=== PATIENT | male | born 1955 | race Caucasian/White ===

== ENCOUNTER → 2017-03-01 | Outpatient (REF) | payer OTHER ==
[~2017-03-01] MED LIST: /PRAV20TA; /WARF25TA; ACET65TA; ALTA5CAP; AMBI5TAB; ASPI81TA83; DARV100T; FISH1000; NAPR500T; NIAC50TA; PERC5TAB8; PERC7.5T8; [UNRECOGNIZED DRUG - OTHER]
[2017-03-01 17:13] LABS: MEAN CORPUSCULAR HEMOGLOBIN 31.4 pg (27.0-33.0); MEAN CORPUSCULAR HGB CONC 32.5 g/dl (32.0-36.5); MEAN CORPUSCULAR VOLUME 96.7 fl (80.0-96.0); RED CELL DISTRIBUTION WIDTH 12.8 % (11.5-14.5)
[2017-03-01 17:50] LABS: ALBUMIN 4.3 GM/DL (3.2-5.2); ALBUMIN/GLOBULIN RATIO 1.39 (1.00-1.93); ALKALINE PHOSPHATASE 46 U/L (45-117); ALT/SGPT 23 U/L (12-78); ANION GAP 6 MEQ/L (8-16); AST/SGOT 15 U/L (15-37); BILIRUBIN,TOTAL 0.4 MG/DL (0.2-1.0); BLOOD UREA NITROGEN 26 MG/DL (7-18); CALCIUM LEVEL 9.1 MG/DL (8.8-10.2); CARBON DIOXIDE LEVEL 29 MEQ/L (21-32); CHLORIDE LEVEL 106 MEQ/L (98-107); CHOLESTEROL LEVEL 201 MG/DL (<200); CREATININE FOR GFR 1.15 MG/DL (0.70-1.30); GLOMERULAR FILTRATION RATE > 60.0 (>49); GLUCOSE, FASTING 100 MG/DL (80-110); POTASSIUM SERUM 4.7 MEQ/L (3.5-5.1); SODIUM LEVEL 141 MEQ/L (136-145); TOTAL PROTEIN 7.4 GM/DL (6.4-8.2); TRIGLYCERIDES LEVEL 178 MG/DL (<150)
== END ==
LOC: M SFHCCLAY 11:27
PROVIDERS: ATTEND Nurse Practitioner Family
DX: I10 Essential (primary) hypertension (principal); E78.4 Other hyperlipidemia; E55.9 Vitamin D deficiency, unspecified

== ENCOUNTER → 2017-05-23 | Outpatient (REF) | payer OTHER ==
[2017-05-23 18:20] LABS: BLOOD UREA NITROGEN 28 MG/DL (7-18); CHOLESTEROL LEVEL 178 MG/DL (<200); CREATININE FOR GFR 1.09 MG/DL (0.70-1.30); GLOMERULAR FILTRATION RATE > 60.0 (>49); TRIGLYCERIDES LEVEL 165 MG/DL (<150)
== END ==
LOC: M SFHCCLAY 10:35
PROVIDERS: ATTEND Nurse Practitioner Family
DX: I10 Essential (primary) hypertension (principal); E78.4 Other hyperlipidemia; E55.9 Vitamin D deficiency, unspecified

== ENCOUNTER → 2017-08-31 | Outpatient (REF) | payer OTHER ==
[2017-08-31 17:39] LABS: ANION GAP 6 MEQ/L (8-16); BLOOD UREA NITROGEN 25 MG/DL (7-18); CALCIUM LEVEL 9.2 MG/DL (8.8-10.2); CARBON DIOXIDE LEVEL 27 MEQ/L (21-32); CHLORIDE LEVEL 107 MEQ/L (98-107); CHOLESTEROL LEVEL 158 MG/DL (<200); CREATININE FOR GFR 1.13 MG/DL (0.70-1.30); GLOMERULAR FILTRATION RATE > 60.0 (>49); GLUCOSE, FASTING 100 MG/DL (80-110); POTASSIUM SERUM 4.7 MEQ/L (3.5-5.1); SODIUM LEVEL 140 MEQ/L (136-145); TRIGLYCERIDES LEVEL 163 MG/DL (<150)
== END ==
LOC: M SFHCCLAY 11:37
PROVIDERS: ATTEND Nurse Practitioner Family
DX: E78.1 Pure hyperglyceridemia (principal); I10 Essential (primary) hypertension; E55.9 Vitamin D deficiency, unspecified

== ENCOUNTER → 2018-03-10 | Outpatient (REF) | payer OTHER ==
[2018-03-10 16:33] LABS: HEMATOCRIT 41.3 % (42.0-52.0); HEMOGLOBIN 13.9 g/dl (13.5-17.5); MEAN CORPUSCULAR HEMOGLOBIN 32.3 pg (27.0-33.0); MEAN CORPUSCULAR HGB CONC 33.7 g/dl (32.0-36.5); PLATELET COUNT, AUTOMATED 183 10^3/uL (150-450); RED CELL DISTRIBUTION WIDTH 11.9 % (11.5-14.5); WHITE BLOOD COUNT 5.6 10^3/uL (4.0-10.0)
[2018-03-10 16:47] LABS: ALBUMIN 4.1 GM/DL (3.2-5.2); ALBUMIN/GLOBULIN RATIO 1.17 (1.00-1.93); ALKALINE PHOSPHATASE 40 U/L (45-117); ALT/SGPT 23 U/L (12-78); ANION GAP 6 MEQ/L (8-16); AST/SGOT 20 U/L (7-37); BILIRUBIN,TOTAL 0.4 MG/DL (0.2-1.0); BLOOD UREA NITROGEN 31 MG/DL (7-18); CALCIUM LEVEL 8.5 MG/DL (8.8-10.2); CARBON DIOXIDE LEVEL 27 MEQ/L (21-32); CHLORIDE LEVEL 109 MEQ/L (98-107); CHOLESTEROL LEVEL 159 MG/DL (<200); CHOLESTEROL RISK RATIO 3.613 (<5); CREATININE FOR GFR 1.14 MG/DL (0.70-1.30); GLOMERULAR FILTRATION RATE > 60.0 (>49); GLUCOSE, FASTING 113 MG/DL (70-100); HDL CHOLESTEROL 44 MG/DL (>40); LDL CHOLESTEROL 84.8 MG/DL (<100); NON-HDL-C 115 MG/DL; POTASSIUM SERUM 4.7 MEQ/L (3.5-5.1); SODIUM LEVEL 142 MEQ/L (136-145); TOTAL PROTEIN 7.6 GM/DL (6.4-8.2); TRIGLYCERIDES LEVEL 151 MG/DL (<150)
[2018-03-10 16:48] LABS: TOTAL 25(OH) VITAMIN D 41.8 NG/ML (30.0-100.0)
== END ==
LOC: M SFHCCLAY 10:35
DX: I10 Essential (primary) hypertension (principal); E78.4 Other hyperlipidemia; E55.9 Vitamin D deficiency, unspecified
CPT/HCPCS: 80053

== ENCOUNTER 2018-04-14 12:14 | Day surgery (SDC) | payer BC, OTHER ==
[2018-04-14] MEDS ORDERED: NS 1,000 ML IV (12:45)
[2018-04-14] MEDS ORDERED: PROPOFOL 200 MG/20 ML VIAL As Ordered ×2 (13:20)
[2018-04-14] MEDS ORDERED: LIDOCAINE 2% INJ 100 MG/5 ML SDV (FOR ANES.) As Ordered (13:34)
== END 2018-04-14 14:30 | disposition home or self-care (01) ==
LOC: M OPP 14:30
DX: Z12.11 Encounter for screening for malignant neoplasm of colon (principal); K64.0 First degree hemorrhoids; K57.30 Diverticulosis of large intestine without perforation or abscess without bleeding; I10 Essential (primary) hypertension; E87.5 Hyperkalemia; M12.9 Arthropathy, unspecified; M54.2 Cervicalgia; G47.30 Sleep apnea, unspecified; Z79.82 Long term (current) use of aspirin; Z79.899 Other long term (current) drug therapy; Z88.8 Allergy status to other drugs, medicaments and biological substances; Z96.651 Presence of right artificial knee joint
CPT/HCPCS: 45378

== ENCOUNTER → 2018-07-28 | Outpatient (REF) | payer OTHER ==
[2018-07-28 19:38] LABS: HEMATOCRIT 43.5 % (42.0-52.0); HEMOGLOBIN 14.5 g/dl (13.5-17.5); MEAN CORPUSCULAR HEMOGLOBIN 32.2 pg (27.0-33.0); MEAN CORPUSCULAR HGB CONC 33.3 g/dl (32.0-36.5); MEAN CORPUSCULAR VOLUME 96.7 fl (80.0-96.0); PLATELET COUNT, AUTOMATED 209 10^3/uL (150-450); RED CELL DISTRIBUTION WIDTH 12.4 % (11.5-14.5); WHITE BLOOD COUNT 5.5 10^3/uL (4.0-10.0)
[2018-07-28 19:56] LABS: ALBUMIN 4.4 GM/DL (3.2-5.2); ALBUMIN/GLOBULIN RATIO 1.33 (1.00-1.93); ALKALINE PHOSPHATASE 38 U/L (45-117); ALT/SGPT 22 U/L (12-78); ANION GAP 8 MEQ/L (8-16); AST/SGOT 15 U/L (7-37); BILIRUBIN,TOTAL 0.5 MG/DL (0.2-1.0); BLOOD UREA NITROGEN 30 MG/DL (7-18); CALCIUM LEVEL 9.5 MG/DL (8.8-10.2); CARBON DIOXIDE LEVEL 26 MEQ/L (21-32); CHLORIDE LEVEL 104 MEQ/L (98-107); CHOLESTEROL LEVEL 159 MG/DL (<200); CHOLESTEROL RISK RATIO 3.057 (<5); CREATININE FOR GFR 1.07 MG/DL (0.70-1.30); GLOMERULAR FILTRATION RATE > 60.0 (>49); GLUCOSE, FASTING 97 MG/DL (70-100); HDL CHOLESTEROL 52 MG/DL (>40); LDL CHOLESTEROL 77 MG/DL (<100); NON-HDL-C 107 MG/DL; POTASSIUM SERUM 4.4 MEQ/L (3.5-5.1); SODIUM LEVEL 138 MEQ/L (136-145); TOTAL PROTEIN 7.7 GM/DL (6.4-8.2); TRIGLYCERIDES LEVEL 151 MG/DL (<150)
== END ==
LOC: M SFHCCLAY 11:33
DX: I10 Essential (primary) hypertension (principal); E78.4 Other hyperlipidemia

== ENCOUNTER → 2019-03-09 | Outpatient (REF) | payer MEDICARE, OTHER ==
[~2019-03-09] MED LIST changes: -/PRAV20TA; -/WARF25TA; +ASPI81TA26 PO; +COUM1TAB18; +D-3-50003 PO; +FENO200C; +NABU-119; +PRAV1TAB39; +ZOLP10TA2
[2019-03-09 17:20] LABS: ALBUMIN 4.3 GM/DL (3.2-5.2); ALT/SGPT 20 U/L (12-78); BILIRUBIN,TOTAL 0.4 MG/DL (0.2-1.0); BLOOD UREA NITROGEN 28 MG/DL (7-18); CARBON DIOXIDE LEVEL 27 MEQ/L (21-32); CHLORIDE LEVEL 105 MEQ/L (98-107); CHOLESTEROL LEVEL 147 MG/DL (<200); CHOLESTEROL RISK RATIO 3.127 (<5); CREATININE FOR GFR 1.09 MG/DL (0.70-1.30); GLOMERULAR FILTRATION RATE > 60.0 (>49); GLUCOSE, FASTING 91 MG/DL (70-100); HDL CHOLESTEROL 47 MG/DL (>40); HEMATOCRIT 39.6 % (42.0-52.0); HEMOGLOBIN 13.2 g/dl (13.5-17.5); LDL CHOLESTEROL 74 MG/DL (<100); MEAN CORPUSCULAR HEMOGLOBIN 32.1 pg (27.0-33.0); MEAN CORPUSCULAR HGB CONC 33.3 g/dl (32.0-36.5); MEAN CORPUSCULAR VOLUME 96.4 fl (80.0-96.0); NON-HDL-C 100 MG/DL; PLATELET COUNT, AUTOMATED 190 10^3/uL (150-450); POTASSIUM SERUM 4.6 MEQ/L (3.5-5.1); RED BLOOD COUNT 4.11 10^6/uL (4.30-6.10); SODIUM LEVEL 138 MEQ/L (136-145); TOTAL PROTEIN 7.1 GM/DL (6.4-8.2); TRIGLYCERIDES LEVEL 128 MG/DL (<150); WHITE BLOOD COUNT 5.7 10^3/uL (4.0-10.0)
[2019-03-09 17:29] LABS: TOTAL 25(OH) VITAMIN D 36.5 NG/ML (30.0-100.0)
== END ==
LOC: M SFHCCLAY 13:08
PROVIDERS: ATTEND Nurse Practitioner Family
DX: I10 Essential (primary) hypertension (principal); E78.49 Other hyperlipidemia; E55.9 Vitamin D deficiency, unspecified

== ENCOUNTER → 2019-04-11 | Outpatient (REF) | payer MEDICARE, OTHER | LOC: M LAB REF 15:50 | PROVIDERS: ATTEND Specialist | DX: C44.209 Unspecified malignant neoplasm of skin of left ear and external auricular canal (principal) ==

== ENCOUNTER 2019-05-07 10:38 | Day surgery (SDC) | payer MEDICARE, BC, OTHER ==
[~2019-05-07] VITALS: Ht 182.9 cm; Wt 92.4 kg
[~2019-05-07 10:38] MED LIST changes: +ALTA1CAP3 PO; +FENO54TA14 PO; +LIDOCAINE 1% MDV 20ML VIAL SQ PRN; +LR 1,000 ML IV ONE; +PRAV1TAB39 PO
[2019-05-07] MEDS ORDERED: MIDAZOLAM INJ 2 MG/2 ML VIAL (J2250) As Ordered ONE (12:05)
[2019-05-07] MEDS ORDERED: fentaNYL 100 MCG/2 ML INJECTION (J3010) As Ordered ONE (12:05)
[2019-05-07] MEDS ORDERED: PROPOFOL 200 MG/20 ML VIAL As Ordered ONE (12:05)
[2019-05-07] MEDS ORDERED: LIDOCAINE 2% INJ 100 MG/5 ML SDV (FOR ANES.) As Ordered ONE (12:05)
[2019-05-07] MEDS ORDERED: BACITRACIN OINT 30GM As Ordered ONE (12:43)
[2019-05-07] MEDS ORDERED: EPINEPHrine 1MG/ML INJ 30ML MD-VIAL As Ordered ONE (12:43)
[2019-05-07] MEDS ORDERED: METHYLENE BLUE 0.5% (5MG/ML) 10 ML AMP (PROVAYBLUE)(Q9968 PER 1MG) As Ordered ONE (12:44)
[2019-05-07] MEDS ORDERED: LIDOCAINE W/EPINEPHRINE 1% 20ML VIAL As Ordered ONE (12:44)
[2019-05-07] MEDS ORDERED: ONDANSETRON 4MG/2ML VIAL (J2405) As Ordered ONE (12:45)
[2019-05-07] MEDS ORDERED: dexameTHASONE 4 MG/ML 1ML VIAL (J1100) As Ordered ONE (12:45)
[2019-05-07] MEDS ORDERED: ONDANSETRON 4MG/2ML VIAL (J2405) IV PRN (15:30)
[2019-05-07] MEDS ORDERED: METOCLOPRAMIDE INJ 10MG/2ML VIAL (J2765) IV PRN (15:30)
[2019-05-07] MEDS ORDERED: fentaNYL 100 MCG/2 ML INJECTION (J3010) IV PRN (15:30)
[2019-05-07] MEDS ORDERED: LR 1,000 ML IV SCH (15:30)
[2019-05-07] MEDS ORDERED: PERCOCET 5MG/325MG TAB PO PRN ×2 (15:30)
[2019-05-07] MEDS ORDERED: MEPERIDINE INJ 25 MG/ML VIAL (J2175) IV PRN (15:30)
[2019-05-07] MEDS ORDERED: IBUPROFEN 800 MG TAB PO PRN (15:45)
[2019-05-07 16:01] VITALS: BP 123/65
== END 2019-05-07 16:38 | disposition home or self-care (01) ==
LOC: M SDC 10:38
PROVIDERS: ATTEND Specialist
DX: C44.229 Squamous cell carcinoma of skin of left ear and external auricular canal (principal); L57.8 Other skin changes due to chronic exposure to nonionizing radiation; I10 Essential (primary) hypertension; E78.5 Hyperlipidemia, unspecified; G47.30 Sleep apnea, unspecified; Z79.82 Long term (current) use of aspirin; Z79.899 Other long term (current) drug therapy; Z88.8 Allergy status to other drugs, medicaments and biological substances
CPT/HCPCS: 88305; 88331; J1100; J2250; J2405; J3010

== ENCOUNTER → 2019-05-30 | Outpatient (CLI) | payer MEDICARE, BC ==
[~2019-05-30] MED LIST changes: -LIDOCAINE 1% MDV 20ML VIAL SQ PRN; -LR 1,000 ML IV ONE
--- NOTE | 2019-05-30 09:28 | REP ---
PA and lateral chest: Comparison is 06/05/2010. The lung gomez are clear. The cardiac size is normal. The beverly, mediastinum, and skeletal structures are unremarkable. Impression: Negative PA and lateral chest. There is no interval change. Electronically Signed by William Asencio MD 05/30/2019 09:19 A
== END ==
LOC: M CLY 08:49
PROVIDERS: ATTEND Family Medicine
DX: R06.2 Wheezing (principal); R05 Cough
CPT/HCPCS: 71046; G0463

== ENCOUNTER → 2019-08-13 | Outpatient (REF) | payer MEDICARE, OTHER ==
[2019-08-13 16:50] LABS: BASO # 0.1 10^3/uL (0.0-0.2); BASO % 0.8 % (0.0-1.0); EOS # 0.2 10^3/uL (0.0-0.5); EOS % 2.4 % (0.0-3.0); HEMATOCRIT 42.4 % (42.0-52.0); LYMPH # 1.4 10^3/uL (1.5-5.0); LYMPH % 22.5 % (24.0-44.0); MEAN CORPUSCULAR HEMOGLOBIN 32.4 pg (27.0-33.0); MEAN CORPUSCULAR VOLUME 98.1 fl (80.0-96.0); MONO # 0.6 10^3/uL (0.0-0.8); NEUTROPHILS % 64.7 % (36.0-66.0); PLATELET COUNT, AUTOMATED 206 10^3/uL (150-450); RED BLOOD COUNT 4.32 10^6/uL (4.30-6.10); WHITE BLOOD COUNT 6.2 10^3/uL (4.0-10.0)
[2019-08-13 16:52] LABS: C REACTIVE PROTEIN QUANTITATIV < 0.30 MG/DL (0.00-0.30); RHEUMATOID FACTOR QUANT < 10.0 IU/ML (<15.0)
[2019-08-13 17:27] LABS: ERYTHROCYTE SEDIMENTATION RATE 6 mm/hr (0-20)
[2019-08-16 00:09] LABS: ANTI DOUBLE STRAND-DNA AB 18 IU/mL (0-9); ANTINUCLEAR ANTIBODIES DIRECT Positive (Negative); Lyme Disease IgG/IgM Antibodie <0.91 ISR (0.00-0.90); Lyme Disease IgM Ab Quantitati <0.80 index (0.00-0.79); RNP ANTIBODIES <0.2 AI (0.0-0.9); SJOGREN'S ANTI SS-A <0.2 AI (0.0-0.9); SJOGREN'S ANTI SS-B <0.2 AI (0.0-0.9); SMITH ANTIBODIES 0.4 AI (0.0-0.9)
== END ==
LOC: M LABDRAW1 15:44
PROVIDERS: ATTEND Orthopaedic Surgery
DX: M25.542 Pain in joints of left hand (principal)

== ENCOUNTER → 2020-03-12 | Outpatient (REF) | payer MEDICARE, OTHER ==
[2020-03-12 16:37] LABS: HEMATOCRIT 39.7 % (42.0-52.0); HEMOGLOBIN 13.3 g/dl (13.5-17.5); MEAN CORPUSCULAR HEMOGLOBIN 32.2 pg (27.0-33.0); MEAN CORPUSCULAR HGB CONC 33.5 g/dl (32.0-36.5); MEAN CORPUSCULAR VOLUME 96.1 fl (80.0-96.0); PLATELET COUNT, AUTOMATED 216 10^3/uL (150-450); RED BLOOD COUNT 4.13 10^6/uL (4.30-6.10); WHITE BLOOD COUNT 7.4 10^3/uL (4.0-10.0)
[2020-03-12 17:08] LABS: ALBUMIN 3.7 GM/DL (3.2-5.2); BILIRUBIN,TOTAL 0.4 MG/DL (0.2-1.0); CALCIUM LEVEL 8.9 MG/DL (8.8-10.2); CHOLESTEROL RISK RATIO 3.921 (<5); CREATININE FOR GFR 1.28 MG/DL (0.70-1.30); GLOMERULAR FILTRATION RATE 59.9 (>49); POTASSIUM SERUM 4.8 MEQ/L (3.5-5.1); TOTAL PROTEIN 7.2 GM/DL (6.4-8.2)
[2020-03-12 17:17] LABS: TOTAL 25(OH) VITAMIN D 33.7 NG/ML (30.0-100.0)
== END ==
LOC: M SFHCCLAY 13:47
PROVIDERS: ATTEND Nurse Practitioner Family
DX: I10 Essential (primary) hypertension (principal); E78.5 Hyperlipidemia, unspecified; E55.9 Vitamin D deficiency, unspecified

== ENCOUNTER → 2020-04-02 | Outpatient (CLI) | payer MEDICARE, BC ==
[~2020-04-02] MED LIST changes: -NABU-119; +NABU-53
--- NOTE | 2020-04-02 12:34 | REP ---
CHEST, TWO VIEWS: COMPARISON: 05/30/2019. There is no evidence of acute infiltrate. No pleural effusion is seen. The heart is normal in size. The mediastinal silhouette is unremarkable. The visualized osseous structures are intact. IMPRESSION: No acute pulmonary disease. Electronically Signed by William Riley MD 04/02/2020 04:44 P
== END ==
LOC: M CLY 11:36
PROVIDERS: ATTEND Nurse Practitioner Adult Health
DX: R05 Cough (principal); D64.9 Anemia, unspecified

== ENCOUNTER → 2020-04-02 | Outpatient (REF) | payer MEDICARE, OTHER ==
[2020-04-02 17:23] LABS: PERCENT SATURATION 21.9 % (19.7-50.0)
[2020-04-02 17:29] LABS: HEMATOCRIT 39.1 % (42.0-52.0); MEAN CORPUSCULAR HEMOGLOBIN 32.1 pg (27.0-33.0); MEAN CORPUSCULAR HGB CONC 33.2 g/dl (32.0-36.5); MEAN CORPUSCULAR VOLUME 96.5 fl (80.0-96.0); PLATELET COUNT, AUTOMATED 195 10^3/uL (150-450); RED BLOOD COUNT 4.05 10^6/uL (4.30-6.10); WHITE BLOOD COUNT 5.3 10^3/uL (4.0-10.0)
[2020-04-02 17:31] LABS: FOLATE 11.2 NG/ML (>5.4)
== END ==
LOC: M SFHCCLAY 11:27
PROVIDERS: ATTEND Nurse Practitioner Family
DX: D64.9 Anemia, unspecified (principal)

== ENCOUNTER → 2020-04-22 | Outpatient (REF) | payer MEDICARE, OTHER ==
[~2020-04-22] MED LIST changes: +NABU-119; -NABU-53
[2020-04-24 19:07] LABS: ANA (HEP2) Negative (.); Lyme Disease IgG/IgM Antibodie <0.91 ISR (0.00-0.90); Lyme Disease IgM Ab Quantitati <0.80 index (0.00-0.79)
== END ==
LOC: M SFHCCLAY 14:17
PROVIDERS: ATTEND Nurse Practitioner Family
DX: M25.50 Pain in unspecified joint (principal)
CPT/HCPCS: 85652; 86038; 86431; 86617; G0463

== ENCOUNTER → 2020-05-05 | Outpatient (CLI) | payer MEDICARE, BC, OTHER ==
[~2020-05-05] MED LIST changes: +METHACHOLINE KIT (J7674) INH ONE
== END ==
LOC: M CARPUL 05-01 08:31
PROVIDERS: ATTEND Nurse Practitioner Adult Health
DX: R05 Cough (principal)
CPT/HCPCS: 94070; 95070; J7674

== ENCOUNTER → 2020-06-17 | Outpatient (CLI) | payer MEDICARE, BC, OTHER ==
[~2020-06-17] MED LIST changes: -METHACHOLINE KIT (J7674) INH ONE; -NABU-119; +NABU-53
[2020-09-02 10:37] LABS: BLOOD UREA NITROGEN SEE SEPARATE REPORT MG/DL (6-20)
== END ==
LOC: M LAB 13:16
PROVIDERS: ATTEND Nurse Practitioner Adult Health
DX: R06.02 Shortness of breath (principal); R05 Cough

== ENCOUNTER → 2020-06-19 | Outpatient (CLI) | payer MEDICARE, BC, OTHER ==
[2020-08-16 15:48] LABS: C REACTIVE PROTEIN QUANTITATIV < 0.30 MG/DL (0.00-0.30); RHEUMATOID FACTOR QUANT < 10.0 IU/ML (<15.0); URIC ACID 4.8 MG/DL (3.5-7.2)
== END ==
LOC: M LAB 15:11
PROVIDERS: ATTEND Internal Medicine Rheumatology
DX: M13.0 Polyarthritis, unspecified (principal)
CPT/HCPCS: 36415; 84550; 85652; 86140; 86200; 86431; G0463

== ENCOUNTER → 2020-07-13 | Outpatient (REF) | payer MEDICARE, OTHER | LOC: M SFHCCLAY 11:25 | PROVIDERS: ATTEND Nurse Practitioner Family | DX: R19.7 Diarrhea, unspecified (principal) ==

== ENCOUNTER → 2020-09-25 | Outpatient (CLI) | payer MEDICARE, BC, OTHER | LOC: M LABSMTC 13:46 | PROVIDERS: ATTEND Family Medicine | DX: Z20.828 Contact with and (suspected) exposure to other viral communicable diseases (principal) ==

== ENCOUNTER → 2021-03-05 | Outpatient (REF) | payer MEDICARE, OTHER ==
[~2021-03-05] MED LIST changes: -NABU-53; +NABU-73
[2021-03-05 16:22] LABS: HEMATOCRIT 42.3 % (42.0-52.0); HEMOGLOBIN 13.9 g/dl (13.5-17.5); MEAN CORPUSCULAR HEMOGLOBIN 32.1 pg (27.0-33.0); MEAN CORPUSCULAR HGB CONC 32.9 g/dl (32.0-36.5); MEAN CORPUSCULAR VOLUME 97.7 fl (80.0-96.0); PLATELET COUNT, AUTOMATED 198 10^3/uL (150-450); RED BLOOD COUNT 4.33 10^6/uL (4.30-6.10); WHITE BLOOD COUNT 5.8 10^3/uL (4.0-10.0)
[2021-03-05 16:50] LABS: ALT/SGPT 19 U/L (12-78); BILIRUBIN,TOTAL 0.3 MG/DL (0.2-1.0); BLOOD UREA NITROGEN 29 MG/DL (7-18); CALCIUM LEVEL 9.5 MG/DL (8.8-10.2); CARBON DIOXIDE LEVEL 28 MEQ/L (21-32); CHLORIDE LEVEL 108 MEQ/L (98-107); CHOLESTEROL LEVEL 160 MG/DL (<200); CHOLESTEROL RISK RATIO 3.076 (<5); CREATININE FOR GFR 1.13 MG/DL (0.70-1.30); GLOMERULAR FILTRATION RATE > 60.0 (>49); GLUCOSE, FASTING 114 MG/DL (70-100); HDL CHOLESTEROL 52 MG/DL (>40); LDL CHOLESTEROL 81 MG/DL (<100); NON-HDL-C 108 MG/DL; POTASSIUM SERUM 4.4 MEQ/L (3.5-5.1); SODIUM LEVEL 141 MEQ/L (136-145); TOTAL PROTEIN 7.3 GM/DL (6.4-8.2); TRIGLYCERIDES LEVEL 133 MG/DL (<150)
[2021-03-05 16:55] LABS: TOTAL 25(OH) VITAMIN D 43.8 NG/ML (30.0-100.0)
== END ==
LOC: M SFHCCLAY 11:36
PROVIDERS: ATTEND Nurse Practitioner Family
DX: E78.5 Hyperlipidemia, unspecified (principal); I10 Essential (primary) hypertension; E55.9 Vitamin D deficiency, unspecified

== ENCOUNTER → 2021-09-09 | Outpatient (CLI) | payer MEDICARE, BC, OTHER ==
[2021-09-09 13:54] LABS: CALCIUM LEVEL 9.5 MG/DL (8.8-10.2); CREATININE FOR GFR 1.37 MG/DL (0.70-1.30); POTASSIUM SERUM 4.7 MEQ/L (3.5-5.1)
== END ==
LOC: M LAB 12:34
PROVIDERS: ATTEND Family Medicine
DX: I11.9 Hypertensive heart disease without heart failure (principal)

== ENCOUNTER → 2022-03-17 | Outpatient (REF) | payer MEDICARE, OTHER ==
[~2022-03-17] MED LIST changes: -FENO200C; +FENO200C19
[2022-03-17 15:51] LABS: BASO % 0.5 % (0.0-1.0); EOS # 0.1 10^3/uL (0.0-0.5); EOS % 1.6 % (0.0-3.0); HEMATOCRIT 41.3 % (42.0-52.0); HEMOGLOBIN 13.7 g/dl (13.5-17.5); LYMPH # 1.6 10^3/uL (1.5-5.0); LYMPH % 26.6 % (24.0-44.0); MEAN CORPUSCULAR HEMOGLOBIN 32.4 pg (27.0-33.0); MEAN CORPUSCULAR HGB CONC 33.2 g/dl (32.0-36.5); MEAN CORPUSCULAR VOLUME 97.6 fl (80.0-96.0); MONO # 0.5 10^3/uL (0.0-0.8); MONO % 8.4 % (2.0-8.0); NEUTROPHILS # 3.8 10^3/uL (1.5-8.5); NEUTROPHILS % 62.4 % (36.0-66.0); PLATELET COUNT, AUTOMATED 223 10^3/uL (150-450); RED BLOOD COUNT 4.23 10^6/uL (4.30-6.10); WHITE BLOOD COUNT 6.1 10^3/uL (4.0-10.0)
[2022-03-17 16:34] LABS: ALBUMIN 3.9 GM/DL (3.2-5.2); ALT/SGPT 39 U/L (12-78); BILIRUBIN,TOTAL 0.3 MG/DL (0.2-1.0); BLOOD UREA NITROGEN 29 MG/DL (7-18); CARBON DIOXIDE LEVEL 28 MEQ/L (21-32); CHLORIDE LEVEL 109 MEQ/L (98-107); CHOLESTEROL LEVEL 142 MG/DL (<200); CHOLESTEROL RISK RATIO 4.303 (<5); CREATININE FOR GFR 1.08 MG/DL (0.70-1.30); FREE T4 1.02 NG/DL (0.76-1.46); GLOMERULAR FILTRATION RATE > 60.0 (>49); GLUCOSE, FASTING 111 MG/DL (70-100); HDL CHOLESTEROL 33 MG/DL (>40); LDL CHOLESTEROL 70 MG/DL (<100); NON-HDL-C 109 MG/DL; POTASSIUM SERUM 4.4 MEQ/L (3.5-5.1); SODIUM LEVEL 142 MEQ/L (136-145); TOTAL 25(OH) VITAMIN D 51.9 NG/ML (30.0-100.0); TOTAL PROTEIN 7.4 GM/DL (6.4-8.2); TRIGLYCERIDES LEVEL 196 MG/DL (<150)
[2022-03-17 22:33] LABS: HEMOGLOBIN A1c 5.7 %
== END ==
LOC: M SFHCCLAY 12:54
PROVIDERS: ATTEND Family Medicine
DX: R19.7 Diarrhea, unspecified (principal); I10 Essential (primary) hypertension; R73.01 Impaired fasting glucose; E78.5 Hyperlipidemia, unspecified; E55.9 Vitamin D deficiency, unspecified; Z79.899 Other long term (current) drug therapy

== ENCOUNTER → 2022-03-30 | Outpatient (CLI) | payer MEDICARE, BC, OTHER | LOC: M WHC 07:52 | PROVIDERS: ATTEND Family Medicine | DX: N13.30 Unspecified hydronephrosis (principal); R19.7 Diarrhea, unspecified ==

== ENCOUNTER → 2022-06-05 | Outpatient (CLI) | payer MEDICARE, BC, OTHER | LOC: M SLEEP 20:00 | PROVIDERS: ATTEND Nurse Practitioner Adult Health | DX: G47.33 Obstructive sleep apnea (adult) (pediatric) (principal) ==

== ENCOUNTER → 2022-08-11 | Outpatient (CLI) | payer MEDICARE, BC, OTHER | LOC: M RAD 09:54 | PROVIDERS: ATTEND Nurse Practitioner Family | DX: N13.30 Unspecified hydronephrosis (principal) ==

== ENCOUNTER → 2022-08-16 | Outpatient (REF) | payer MEDICARE, BC, OTHER | LOC: M SFHCDERM 14:23 | PROVIDERS: ATTEND Nurse Practitioner Family | DX: C44.629 Squamous cell carcinoma of skin of left upper limb, including shoulder (principal) ==

== ENCOUNTER → 2022-08-27 | Outpatient (REF) | payer MEDICARE, OTHER, BC | LOC: M LAB REF 12:03 | PROVIDERS: ATTEND Internal Medicine Gastroenterology | DX: R19.7 Diarrhea, unspecified (principal); R10.10 Upper abdominal pain, unspecified ==

== ENCOUNTER → 2022-09-08 | Outpatient (REF) | payer MEDICARE, OTHER ==
[2022-09-08 17:26] LABS: HEMATOCRIT 40.5 % (42.0-52.0); HEMOGLOBIN 13.8 g/dl (13.5-17.5); MEAN CORPUSCULAR HEMOGLOBIN 32.7 pg (27.0-33.0); MEAN CORPUSCULAR HGB CONC 34.1 g/dl (32.0-36.5); PLATELET COUNT, AUTOMATED 218 10^3/uL (150-450); RED BLOOD COUNT 4.22 10^6/uL (4.30-6.10); WHITE BLOOD COUNT 8.2 10^3/uL (4.0-10.0)
[2022-09-08 19:41] LABS: ALBUMIN 3.9 GM/DL (3.2-5.2); BILIRUBIN,TOTAL 0.6 MG/DL (0.2-1.0); CHOLESTEROL RISK RATIO 3.2 (<5); CREATININE FOR GFR 1.43 MG/DL (0.70-1.30); GLOMERULAR FILTRATION RATE 52.2 (>49); POTASSIUM SERUM 4.7 MEQ/L (3.5-5.1); TOTAL PROTEIN 7.3 GM/DL (6.4-8.2)
== END ==
LOC: M SFHCCLAY 14:01
PROVIDERS: ATTEND Nurse Practitioner Family
DX: E78.5 Hyperlipidemia, unspecified (principal); G47.33 Obstructive sleep apnea (adult) (pediatric); I10 Essential (primary) hypertension; N13.30 Unspecified hydronephrosis; R73.01 Impaired fasting glucose

== ENCOUNTER → 2022-10-06 | Outpatient (REF) | payer MEDICARE, OTHER | LOC: M LAB REF 15:29 | PROVIDERS: ATTEND Otolaryngology | DX: H60.312 Diffuse otitis externa, left ear (principal) ==

== ENCOUNTER → 2022-10-12 | Outpatient (REF) | payer MEDICARE, OTHER ==
[2022-10-12 19:28] LABS: FERRITIN 109.2 NG/ML (10.5-307.3)
[2022-10-12 19:37] LABS: PERCENT SATURATION 15.5 % (19.7-50.0); TOTAL PROTEIN 6.6 GM/DL (6.4-8.2)
[2022-10-13 17:14] LABS: FOLATE 12.6 NG/ML (>5.4)
== END ==
LOC: M LAB REF 17:28
PROVIDERS: ATTEND Internal Medicine Nephrology
DX: N18.31 Chronic kidney disease, stage 3a (principal); D64.9 Anemia, unspecified

== ENCOUNTER → 2023-01-04 | Outpatient (REF) | payer MEDICARE, OTHER ==
[~2023-01-04] MED LIST changes: +ALBU8.5H INH; +CHOL50003 PO; -FENO200C19; +FENO200C24; +FLUT11IN INH; +GABA-282 PO; +IRON65TA2 PO; +LOPE2CAP PO; +LOSA50TA28 PO; +PRAV20TA2 PO; +TRAZ1TAB11 PO; +ZINC220CA PO
[2023-01-04 17:31] LABS: HEMOGLOBIN 14.5 g/dl (13.5-17.5); MEAN CORPUSCULAR HEMOGLOBIN 31.6 pg (27.0-33.0); MEAN CORPUSCULAR HGB CONC 32.2 g/dl (32.0-36.5); PLATELET COUNT, AUTOMATED 186 10^3/uL (150-450); RED BLOOD COUNT 4.59 10^6/uL (4.30-6.10); WHITE BLOOD COUNT 9.9 10^3/uL (4.0-10.0)
[2023-01-04 18:46] LABS: ALBUMIN 3.5 G/DL (3.2-5.2); ALKALINE PHOSPHATASE 40 U/L (46-116); ALT/SGPT 33 U/L (7.0-40); AST/SGOT 24 U/L (<34); BILIRUBIN,TOTAL 0.5 MG/DL (0.3-1.2); BLOOD UREA NITROGEN 34 MG/DL (9-23); CALCIUM LEVEL 8.9 MG/DL (8.3-10.6); CARBON DIOXIDE LEVEL 29 MMOL/L (20-31); CHLORIDE LEVEL 103 MMOL/L (98-107); GLUCOSE, FASTING 94 MG/DL (74-106); POTASSIUM SERUM 4.8 MMOL/L (3.5-5.1); SODIUM LEVEL 137 MMOL/L (136-145); TOTAL PROTEIN 6.6 G/DL (5.7-8.2)
[2023-01-04 20:13] LABS: CREATININE FOR GFR 1.17 MG/DL (0.70-1.30); GLOMERULAR FILTRATION RATE > 60.0 (>49)
== END ==
LOC: M SFHCCLAY 10:45
PROVIDERS: ATTEND Urology
DX: N13.30 Unspecified hydronephrosis (principal); Z12.5 Encounter for screening for malignant neoplasm of prostate
CPT/HCPCS: 80053; 85027; 87086; G0103

== ENCOUNTER → 2023-01-06 | Outpatient (CLI) | payer MEDICARE, BC ==
[~2023-01-06] MED LIST changes: +HYDR-3713 PO; +MACR100C43 PO; +OXYB5TAB10 PO; +PHEN1TAB73 PO
== END ==
LOC: M CLY 08:54
PROVIDERS: ATTEND Urology
DX: N13.30 Unspecified hydronephrosis (principal)

== ENCOUNTER → 2023-01-06 | Outpatient (REF) | payer MEDICARE, OTHER ==
[2023-01-06 17:28] LABS: APPEARANCE, URINE CLEAR (CLEAR); BACTERIA, URINE AUTO NEGATIVE (NEGATIVE); BILIRUBIN, URINE AUTO NEGATIVE (NEGATIVE); BLOOD, URINE BLOOD NEGATIVE (NEGATIVE); COLOR, URINE YELLOW (YELLOW); GLUCOSE, URINE (UA) AUTO NEGATIVE (NEGATIVE); KETONE, URINE AUTO NEGATIVE (NEGATIVE); LEUKOCYTE ESTERASE, URINE AUTO NEGATIVE (NEGATIVE); MUCUS, URINE SMALL (NEGATIVE); NITRITE, URINE AUTO NEGATIVE (NEGATIVE); PROTEIN, URINE AUTO NEGATIVE (NEGATIVE); RBC, URINE AUTO 0 /HPF (0-3); SPECIFIC GRAVITY URINE AUTO 1.023 (1.002-1.035); SQUAMOUS EPITHELIAL CELL UR AU 0 /HPF (0-6); WBC, URINE AUTO 1 /HPF (0-3)
== END ==
LOC: M SFHCCLAY 09:47
PROVIDERS: ATTEND Family Medicine
DX: E78.5 Hyperlipidemia, unspecified (principal); I12.9 Hypertensive chronic kidney disease with stage 1 through stage 4 chronic kidney disease, or unspecified chronic kidney disease; N13.30 Unspecified hydronephrosis; E55.9 Vitamin D deficiency, unspecified; G47.33 Obstructive sleep apnea (adult) (pediatric); R73.01 Impaired fasting glucose; N18.31 Chronic kidney disease, stage 3a

== ENCOUNTER → 2023-01-10 | Outpatient (CLI) | payer MEDICARE, BC, OTHER ==
[~2023-01-10] MED LIST changes: -HYDR-3713 PO; -MACR100C43 PO; -OXYB5TAB10 PO; -PHEN1TAB73 PO
== END ==
LOC: M LABSMTC 11:23
PROVIDERS: ATTEND Urology
DX: Z01.812 Encounter for preprocedural laboratory examination (principal)

== ENCOUNTER 2023-01-13 11:12 | Day surgery (SDC) | payer MEDICARE, BC, OTHER ==
[~2023-01-13] VITALS: Ht 182.9 cm; Wt 92.0 kg
[~2023-01-13 11:12] MED LIST changes: +ceFAZolin SOD 2 GM in IV 1 EA IV ONE
[2023-01-13] MEDS ORDERED: LR 1,000 ML IV SCH ×2 (11:50→13:10)
[2023-01-13] MEDS ORDERED: fentaNYL 100 MCG/2 ML INJECTION As Ordered ONE (12:26)
[2023-01-13] MEDS ORDERED: ONDANSETRON 4MG 2ML VIAL As Ordered ONE (12:26)
[2023-01-13] MEDS ORDERED: MIDAZOLAM INJ 2MG/2ML VIAL As Ordered ONE (12:26)
[2023-01-13] MEDS ORDERED: propofoL 200 MG/20 ML VIAL As Ordered ONE (12:27)
[2023-01-13] MEDS ORDERED: LIDOCAINE 2% 100MG/5ML SDV (FOR ANES.) As Ordered ONE (12:27)
[2023-01-13] MEDS ORDERED: ISOVUE-300 61% 100ML VIAL As Ordered ONE (12:42)
[2023-01-13] MEDS ORDERED: MORPHINE 2 MG/ML 1ML VIAL IV PRN (13:10)
[2023-01-13] MEDS ORDERED: fentaNYL 100 MCG/2 ML INJECTION IV PRN (13:10)
[2023-01-13] MEDS ORDERED: oxyCODONE 5MG TAB PO PRN (13:10)
[2023-01-13] MEDS ORDERED: METOCLOPRAMIDE INJ 10MG/2ML VIAL IV PRN (13:10)
[2023-01-13] MEDS ORDERED: ONDANSETRON 4MG 2ML VIAL IV PRN (13:10)
[2023-01-13] MEDS ORDERED: PHEN1TAB73 PO (13:17)
[2023-01-13] MEDS ORDERED: HYDR-3713 PO (13:17)
[2023-01-13] MEDS ORDERED: MACR100C43 PO (13:17)
[2023-01-13] MEDS ORDERED: OXYB5TAB10 PO (13:17)
[2023-01-13 14:10] VITALS: BP 131/82
== END 2023-01-13 14:20 | disposition home or self-care (01) ==
LOC: M SDC 11:12
PROVIDERS: ATTEND Urology
DX: N13.30 Unspecified hydronephrosis (principal); I10 Essential (primary) hypertension; E78.00 Pure hypercholesterolemia, unspecified; K52.9 Noninfective gastroenteritis and colitis, unspecified; M54.2 Cervicalgia; M19.90 Unspecified osteoarthritis, unspecified site; Z86.16 Personal history of COVID-19; Z88.8 Allergy status to other drugs, medicaments and biological substances; Z79.899 Other long term (current) drug therapy; Z79.82 Long term (current) use of aspirin; Z79.51 Long term (current) use of inhaled steroids
CPT/HCPCS: 52332; 52351; 74420; C1769; C2617; J0690; J1100; J2250; J2405; J3010; Q9967

== ENCOUNTER → 2023-02-02 | Outpatient (CLI) | payer MEDICARE, BC, OTHER ==
[~2023-02-02] MED LIST changes: +HYDR-3713 PO; +MACR100C43 PO; +OXYB5TAB10 PO; +PHEN1TAB73 PO; -ceFAZolin SOD 2 GM in IV 1 EA IV ONE
== END ==
LOC: M LABSMTC 09:58
PROVIDERS: ATTEND Anesthesiology
DX: Z01.812 Encounter for preprocedural laboratory examination (principal)

== ENCOUNTER 2023-02-07 12:09 | Day surgery (SDC) | payer MEDICARE, BC, OTHER ==
[~2023-02-07] VITALS: Ht 182.9 cm; Wt 85.7 kg
[~2023-02-07 12:09] MED LIST changes: +NS 1,000 ML IV ONE
[2023-02-07] MEDS ORDERED: propofoL 200 MG/20 ML VIAL As Ordered ONE (12:28)
[2023-02-07] MEDS ORDERED: LIDOCAINE 2% 100MG/5ML SDV (FOR ANES.) As Ordered ONE (12:28)
[2023-02-07 14:47] VITALS: BP 127/74
== END 2023-02-07 14:47 | disposition home or self-care (01) ==
LOC: M OPP 12:09
PROVIDERS: ATTEND Internal Medicine Gastroenterology
DX: K64.0 First degree hemorrhoids (principal); K57.30 Diverticulosis of large intestine without perforation or abscess without bleeding; K63.89 Other specified diseases of intestine; I10 Essential (primary) hypertension; E78.00 Pure hypercholesterolemia, unspecified; G47.33 Obstructive sleep apnea (adult) (pediatric); Z99.89 Dependence on other enabling machines and devices; Z79.02 Long term (current) use of antithrombotics/antiplatelets; Z79.1 Long term (current) use of non-steroidal anti-inflammatories (NSAID); Z79.51 Long term (current) use of inhaled steroids; Z79.891 Long term (current) use of opiate analgesic; Z79.899 Other long term (current) drug therapy; Z88.8 Allergy status to other drugs, medicaments and biological substances

== ENCOUNTER → 2023-02-24 | Outpatient (CLI) | payer MEDICARE, BC, OTHER ==
[~2023-02-24] MED LIST changes: -NS 1,000 ML IV ONE
[2023-02-24 11:48] LABS: HEMOGLOBIN A1c 5.6 % (4.0-6.0)
[2023-02-24 11:51] LABS: ALBUMIN 3.6 G/DL (3.2-5.2); ALKALINE PHOSPHATASE 36 U/L (46-116); ALT/SGPT 21 U/L (7.0-40); AST/SGOT 21 U/L (<34); BILIRUBIN,TOTAL 0.4 MG/DL (0.3-1.2); BLOOD UREA NITROGEN 31 MG/DL (9-23); CARBON DIOXIDE LEVEL 27 MMOL/L (20-31); CHLORIDE LEVEL 108 MMOL/L (98-107); CHOLESTEROL LEVEL 146 MG/DL (<200); CHOLESTEROL RISK RATIO 2.94 (<5); CREATININE FOR GFR 0.97 MG/DL (0.70-1.30); GLOMERULAR FILTRATION RATE > 60.0 (>49); GLUCOSE, FASTING 109 MG/DL (74-106); HDL CHOLESTEROL 49.5 MG/DL (>40); LDL CHOLESTEROL 73.3 MG/DL (<100); NON-HDL-C 96.5 MG/DL; POTASSIUM SERUM 4.4 MMOL/L (3.5-5.1); SODIUM LEVEL 141 MMOL/L (136-145); TOTAL PROTEIN 6.4 G/DL (5.7-8.2); TRIGLYCERIDES LEVEL 116 MG/DL (<150)
[2023-02-24 11:53] LABS: TOTAL 25(OH) VITAMIN D 64.2 NG/ML (20.0-100.0)
== END ==
LOC: M LAB 10:43
PROVIDERS: ATTEND Nurse Practitioner Family
DX: E55.9 Vitamin D deficiency, unspecified (principal); I10 Essential (primary) hypertension; E78.5 Hyperlipidemia, unspecified; R73.01 Impaired fasting glucose

== ENCOUNTER → 2023-06-13 | Outpatient (REF) | payer MEDICARE, BC, OTHER ==
[~2023-06-13] MED LIST changes: -FLUT11IN INH; +FLUT12AE6 INH
== END ==
LOC: M SFHCDERM 17:40
PROVIDERS: ATTEND Physician Assistant
DX: D04.30 Carcinoma in situ of skin of unspecified part of face (principal); L57.8 Other skin changes due to chronic exposure to nonionizing radiation

== ENCOUNTER → 2023-07-08 | Outpatient (REF) | payer MEDICARE, BC, OTHER | LOC: M SFHCDERM 17:18 | PROVIDERS: ATTEND Physician Assistant | DX: D04.39 Carcinoma in situ of skin of other parts of face (principal) ==

== ENCOUNTER → 2023-09-01 | Outpatient (REF) | payer MEDICARE, OTHER ==
[~2023-09-01] MED LIST changes: -OXYB5TAB10 PO; +OXYB5TAB11 PO
== END ==
LOC: M SFHCCLAY 13:11
PROVIDERS: ATTEND Nurse Practitioner Family
DX: I10 Essential (primary) hypertension (principal); E55.9 Vitamin D deficiency, unspecified; E78.5 Hyperlipidemia, unspecified; R73.01 Impaired fasting glucose; Z79.899 Other long term (current) drug therapy

== ENCOUNTER → 2024-03-27 | Outpatient (REF) | payer MEDICARE, BC ==
[~2024-03-27] MED LIST changes: -OXYB5TAB11 PO; +OXYB5TAB14 PO
[2024-03-27 17:52] LABS: ALBUMIN 3.6 G/DL (3.2-5.2); ALKALINE PHOSPHATASE 48 U/L (46-116); ALT/SGPT 19 U/L (7.0-40); AST/SGOT 19 U/L (<34); BILIRUBIN,TOTAL 0.6 MG/DL (0.3-1.2); BLOOD UREA NITROGEN 26 MG/DL (9-23); CALCIUM LEVEL 9.1 MG/DL (8.3-10.6); CARBON DIOXIDE LEVEL 25 MMOL/L (20-31); CHLORIDE LEVEL 105 MMOL/L (98-107); CHOLESTEROL LEVEL 149 MG/DL (<200); CHOLESTEROL RISK RATIO 3.62 (<5); CREATININE FOR GFR 0.98 MG/DL (0.70-1.30); GLOMERULAR FILTRATION RATE > 60.0 (>42); GLUCOSE, FASTING 111 MG/DL (74-106); HDL CHOLESTEROL 41.1 MG/DL (>40); LDL CHOLESTEROL 79.3 MG/DL (<100); NON-HDL-C 107.9 MG/DL; POTASSIUM SERUM 4.1 MMOL/L (3.5-5.1); PSA SCREENING 0.99 NG/ML (< 4.00); SODIUM LEVEL 136 MMOL/L (136-145); TOTAL PROTEIN 6.7 G/DL (5.7-8.2); TRIGLYCERIDES LEVEL 143 MG/DL (<150)
[2024-03-27 17:54] LABS: TOTAL 25(OH) VITAMIN D 53.2 NG/ML (20.0-100.0)
[2024-03-27 18:12] LABS: HEMOGLOBIN A1c 5.5 % (4.0-6.0)
== END ==
LOC: M SFHCCLAY 13:35
PROVIDERS: ATTEND Nurse Practitioner Family
DX: I10 Essential (primary) hypertension (principal); E55.9 Vitamin D deficiency, unspecified; E78.5 Hyperlipidemia, unspecified; R73.01 Impaired fasting glucose; G47.00 Insomnia, unspecified; N13.30 Unspecified hydronephrosis; Z12.5 Encounter for screening for malignant neoplasm of prostate
CPT/HCPCS: 80053; 80061; 82306; 83036; G0103

== ENCOUNTER → 2024-09-06 | Outpatient (CLI) | payer MEDICARE, BC ==
[~2024-09-06] MED LIST changes: +GABA-1172 PO; -GABA-282 PO
[2024-09-06 16:00] LABS: ALKALINE PHOSPHATASE 56 U/L (46-116); ALT/SGPT 17 U/L (7.0-40); AST/SGOT 12 U/L (<34); BILIRUBIN,TOTAL 0.5 MG/DL (0.3-1.2); BLOOD UREA NITROGEN 28 MG/DL (9-23); CALCIUM LEVEL 9.4 MG/DL (8.3-10.6); CARBON DIOXIDE LEVEL 26 MMOL/L (20-31); CHLORIDE LEVEL 107 MMOL/L (98-107); CHOLESTEROL LEVEL 144 MG/DL (<200); CHOLESTEROL RISK RATIO 3.68 (<5); CREATININE FOR GFR 1.06 MG/DL (0.70-1.30); GLOMERULAR FILTRATION RATE > 60.0 (>42); GLUCOSE, FASTING 105 MG/DL (74-106); HDL CHOLESTEROL 39.1 MG/DL (>40); LDL CHOLESTEROL 59.3 MG/DL (<100); NON-HDL-C 104.9 MG/DL; POTASSIUM SERUM 4.3 MMOL/L (3.5-5.1); SODIUM LEVEL 138 MMOL/L (136-145); TOTAL PROTEIN 7.2 G/DL (5.7-8.2); TRIGLYCERIDES LEVEL 228 MG/DL (<150)
[2024-09-06 16:02] LABS: TOTAL 25(OH) VITAMIN D 46.6 NG/ML (20.0-100.0)
[2024-09-06 16:08] LABS: HEMOGLOBIN A1c 5.9 % (4.0-6.0)
== END ==
LOC: M LAB 14:59
PROVIDERS: ATTEND Nurse Practitioner Family
DX: I10 Essential (primary) hypertension (principal); E55.9 Vitamin D deficiency, unspecified; E78.5 Hyperlipidemia, unspecified; R73.01 Impaired fasting glucose; N13.30 Unspecified hydronephrosis; G47.00 Insomnia, unspecified

== ENCOUNTER → 2025-03-22 | Outpatient (REF) | payer MEDICARE, BC ==
[2025-03-22 17:36] LABS: PSA SCREENING 1.02 NG/ML (< 4.00)
[2025-03-22 17:39] LABS: ALBUMIN 3.9 G/DL (3.2-5.2); BILIRUBIN,TOTAL 0.5 MG/DL (0.3-1.2); CALCIUM LEVEL 9.5 MG/DL (8.3-10.6); CHOLESTEROL RISK RATIO 3.6 (<5); CREATININE FOR GFR 0.92 MG/DL (0.70-1.30); GLOMERULAR FILTRATION RATE 88.9 (>42); HDL CHOLESTEROL 39.9 MG/DL (>40); LDL CHOLESTEROL 70.9 MG/DL (<100); NON-HDL-C 104.1 MG/DL; POTASSIUM SERUM 4.6 MMOL/L (3.5-5.1); TOTAL PROTEIN 7.3 G/DL (5.7-8.2)
[2025-03-22 18:10] LABS: HEMOGLOBIN A1c 5.8 % (4.0-6.0)
== END ==
LOC: M SFHCCLAY 13:19
PROVIDERS: ATTEND Nurse Practitioner Family
DX: Z12.5 Encounter for screening for malignant neoplasm of prostate (principal); E78.5 Hyperlipidemia, unspecified; R73.03 Prediabetes
CPT/HCPCS: 80053; 80061; 83036; G0103

== ENCOUNTER → 2025-09-04 | Outpatient (REF) | payer MEDICARE, BC ==
[~2025-09-04] MED LIST changes: -PRAV20TA2 PO; +PRAV20TA78 PO; +ZOLP10TA11; -ZOLP10TA2
[2025-09-04 18:56] LABS: BASO # 0.0 10^3/uL (0.0-0.2); BASO % 0.7 % (0.0-1.0); EOS # 0.2 10^3/uL (0.0-0.5); EOS % 2.8 % (0.0-3.0); LYMPH # 1.5 10^3/uL (1.5-5.0); LYMPH % 26.1 % (24.0-44.0); MONO # 0.5 10^3/uL (0.0-0.8); MONO % 8.8 % (2.0-8.0); NEUTROPHILS # 3.5 10^3/uL (1.5-8.5); NEUTROPHILS % 61.2 % (36.0-66.0); PLATELET COUNT, AUTOMATED 229 10^3/uL (150-450)
[2025-09-04 19:02] LABS: ALT/SGPT 16 U/L (7.0-40); AST/SGOT 16 U/L (<34); CALCIUM LEVEL 9.5 MG/DL (8.3-10.6); CARBON DIOXIDE LEVEL 29 MMOL/L (20-31); CHLORIDE LEVEL 105 MMOL/L (98-107); CHOLESTEROL LEVEL 150 MG/DL (<200); CHOLESTEROL RISK RATIO 4.05 (<5); CREATININE FOR GFR 1.08 MG/DL (0.70-1.30); GLOMERULAR FILTRATION RATE 72.9 (>42); IRON (FE) 109 UG/DL (65-175); LDL CHOLESTEROL 86.2 MG/DL (<100); NON-HDL-C 113.0 MG/DL; PERCENT SATURATION 29.9 % (19.7-50.0); POTASSIUM SERUM 4.9 MMOL/L (3.5-5.1); SODIUM LEVEL 142 MMOL/L (136-145); TRIGLYCERIDES LEVEL 134 MG/DL (<150)
[2025-09-04 19:04] LABS: VITAMIN B12 LEVEL 356 PG/ML (211-911)
[2025-09-04 19:10] LABS: ESTIMATED AVERAGE GLUCOSE 120.0 MG/DL (60-110)
== END ==
LOC: M SFHCCLAY 11:24
PROVIDERS: ATTEND Nurse Practitioner Family
DX: E55.9 Vitamin D deficiency, unspecified (principal); I10 Essential (primary) hypertension; E78.5 Hyperlipidemia, unspecified; G47.33 Obstructive sleep apnea (adult) (pediatric); D64.9 Anemia, unspecified; R73.03 Prediabetes

== ENCOUNTER → 2025-09-05 | Outpatient (REF) | payer MEDICARE, BC ==
[2025-09-05 18:54] LABS: VITAMIN B12 LEVEL 290 PG/ML (211-911)
== END ==
LOC: M LAB REF 17:08
PROVIDERS: ATTEND Nurse Practitioner Family
DX: N13.39 Other hydronephrosis (principal)